=== PATIENT | female | born 2005 | race Caucasian/White ===

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

== ENCOUNTER 2024-10-12 10:40 | Emergency (ER) | payer BC, SELFPAY ==
--- NOTE | ~2024-10-12 | XR_ITS ---
XR abdomen obstructive series Ordering provider: Jasen Green MD History: . Constipation and fullness . Comparison: None. FINDINGS: BOWEL: Fecal material is loaded in the colon. Nonobstructive bowel gas pattern. ORGANOMEGALY: None. SIGNIFICANT PATHOLOGIC CALCIFICATIONS: None. OTHER: No free air is seen under the diaphragm. IMPRESSION: NO ACUTE ABDOMINAL FINDINGS. Constipation. Reviewed, dictated and finalized at location A.
[2024-10-12 10:40] VITALS: BP 121/85; PULSE 83; RESP 20; TEMP 36.7; O2SAT 98
[2024-10-12 11:02] LABS: Bilirubin Urine Negative (Negative); Blood Urine Negative (Negative); Glucose Urine UA Negative (Negative); Ketones Urine Negative (Negative); Leukocyte Esterase Ur Negative LEU/UL (Negative); Nitrate Urine Negative (Negative); Protein Urine Negative (Negative); Urobilinogen Urine 0.2 mg/dL (0.2-1.0); pH Urine 7.5 (5.0-8.0)
[2024-10-12 11:15] LABS: Add Urine Microscopic? YES; Amorphous Sediment Urine Heavy; Appearance Urine Cloudy (Clear); Bacteria Urine 2+ /hpf; Color Urine Yellow (Yellow); RBC Urine 0-2 /hpf (0-2); Squamous Epithelial Cell Urine Few /hpf (Few); WBC Urine 0-3 /hpf (0-3)
[2024-10-12 11:16] LABS: Pregnancy On Board Control Positive; Urine Pregnancy Test Negative
--- OUTSIDE RECORDS SUMMARY | 2024-10-12 11:27 | XMS_ITS | Clinical Summary ---
Author Organization [facility] Address [address] [place] [address] Care Team Providers Care Press Operator [employer] Name Role Phone No, Physician Primary Care Provider [phone] Allergies No known active allergies Medications , 1 mg-20 mcg (21)/75 mg (7) per tablet Take 1 tablet by mouth daily 11/15/2022 Active Active Problems Problem Noted Date Diagnosed Date Fracture of carpal bone 02/11/2015 Encounters Date Type Department Care Team Description 10/11/2024 Results Follow-Up [facility] at [address] [phone] Margaret Aggarwal NP Urine culture Urine, clean voided 10/09/2024 10:02 AM CDT - 10/09/2024 11:59 PM CDT Hospital Encounter [address] [address] Left lower quadrant abdominal pain Discharge Disposition: Discharge to home or self care 10/09/2024 9:15 AM CDT Office Visit [facility] at [address] [phone] Connor Mckeon NP Abdominal pain (Primary Dx); Left lower quadrant abdominal pain; Irregular bowel habits from Last 3 Months Immunizations Immunization Administration Dates Next Due DTaP, Unspecified 12/07/2008,08/14/2005,03/23/20 05,01/22/2005 HPV9 12/04/2015 Hep A, Pediatric 12/03/2009 Hep A, Unspecified 12/07/2008 Hep B, Unspecified 08/14/2005,03/23/2005, 005 HiB 08/14/2005,03/23/2005,01/22/2005 MMR 12/07/2008,11/27/2005 Meningococcal MCV4P (Menactra) 12/04/2015 Polio, Unspecified 12/07/2008,08/14/2005, 005,01/22/2005 Tdap 12/04/2015 Varicella 12/07/2008,11/27/2005 Social History Tobacco Use Types Packs/Day Years Used Date Smoking Tobacco: Never Smokeless Tobacco: Never Tobacco Cessation:Counseling Given: Not Answered Personal Safety Answer Date Recorded Have you ever been in or are you currently in a harmful physical or emotional relationship or is someone making you feel afraid or unsafe? 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 Gender Identity Not on file Sexual Orientation Not on file Obstetrics History Growth Chart Information Age Height Weight [id number] th Percentile BMI Percentile Head Circum Head Circum Percentile Date 18 years 64.9 kg (143 lb) 2024 17 years 170.2 cm (5' 7) 77.1 kg (170 lb) 87.08%* 2023 17 years 167.6 cm (5' 6) 77.1 kg (170 lb) 90.03%* 2022 17 years 168.9 cm (5' 6.5) 76 kg (167 lb 8 oz) 88.31%* 2022 16 years 170.2 cm (5' 7) 73.5 kg (162 lb) 84.64%* 2022 16 years 167.6 cm (5' 6) 68 kg (150 lb) 78.84%* 2022 16 years 166.4 cm (5' 5.5) 68.5 kg (151 lb) 82.62%* 2021 15 years 168.9 cm (5' 6.5) 67.1 kg (148 lb) 77.40%* 2021 14 years 167.6 cm (5' 6) 59.4 kg (131 lb) 60.68%* 2020 13 years 166.4 cm (5' 5.5) 70.3 kg (155 lb) 90.70%* 2019 12 years 62.5 kg (137 lb 12.6 oz) 2017 * [facility] (Girls, 2-20 Years) Last Filed Vital Signs Vital Sign Reading Time Taken Comments Blood Pressure 108/66 10/09/2024 8:53 AM CDT Pulse 73 10/09/2024 8:53 AM CDT Temperature 36.6 C (97.9 F) 10/09/2024 8:53 AM CDT Respiratory Rate 20 10/09/2024 8:53 AM CDT Oxygen Saturation 99% 10/09/2024 8:53 AM CDT Inhaled Oxygen Concentration - - Weight 64.9 kg (143 lb) 10/09/2024 8:53 AM CDT Height 170.2 cm (5' 7) 10/14/2023 10:08 AM CDT Body Mass Index 22.4 10/14/2023 10:08 AM CDT Plan of Treatment Health Maintenance Due Date Last Done Comments Depression Screening 2004 Hepatitis C Screening 2004 HPV Vaccines (2 - 2-dose series) 06/05/2016 12/04/2015 Meningococcal B Vaccine (1 of 2 - Standard) 2020 Regular Well Visit/Exam 18-64 2022 Influenza Vaccine (Season Ended) 2024 DTaP/Tdap/Td Vaccine (6 - Td or Tdap) 12/03/2025 12/04/2015, 12/07/2008, 08/14/2005, Additional history exists Hepatitis B Screening Completed 08/14/2005 , 03/23/2005, 01/22/2005 Varicella Vaccines Completed 12/07/2008, 11/27/2005 Meningococcal Vaccine Completed 01/29/2022, 016 Pneumococcal vaccine <65 Aged Out No longer eligible based on patient's age to complete this topic Procedures Procedure Name Priority Date/Time Associated Diagnosis Comments URINE CULTURE Routine 10/09/2024 10:02 AM CDT Left lower quadrant abdominal pain POCT URINALYSIS DIPSTICK Routine 10/09/2024 9:11 AM CDT Left lower quadrant abdominal pain from Last 3 Months Results * Urine culture Urine, clean voided (10/09/2024 10:02 AM CDT) Report Final Report: No growth Comment:Testing performed by : [facility], [address] [place]., [address] Urine, clean voided 10/09/2024 10:02 AM CDT 10/09/2024 11:51 PM CDT Narrative JESSE Simmons 10/11/2024 7:57 AM CDT Testing performed by [facility] Microbiology Laboratory ([phone]) Connor Mckeon NP LAB MICROBIOLOGY - [facility] Final Result [facility] [address] Department [place] [address] * POCT urinalysis dipstick (10/09/2024 9:11 AM CDT) Color, Urine, POC Yellow Clarity, ur, POC Clear Clear Glucose, ur, POC Negative Negative Bilirubin, ur, POC Negative Negative Ketones, ur, POC Negative Negative Specific [place], POC 1.020 1.003 - 1.030 Blood, ur, POC Negative Negative pH, ur, POC 7.0 5.0 - 8.0 Protein, ur, POC Negative Negative Urobilinogen, urine, POC 0.2 0.2 - 1.0 mg/dL Nitrite, ur, POC Negative Negative Leukocytes, ur, POC Negative Negative Lot Number [id number] Urine 10/09/2024 9:11 AM CDT Connor Mckeon NP POINT OF CARE TEST ORDERABLES F inal Result from Last 3 Months Insurance ANTHEM ACCESS ANTHEM ACCESS CHOICE ANTHEM ACCESS ANTHEM ACCESS Care Teams Press Operator [employer] Relationship Specialty Start Date End Date No, Physician PCP - General 10/14/23
--- OUTSIDE RECORDS SUMMARY | 2024-10-12 11:27 | XMS_ITS | Patient Health Record ---
Author Organization [facility] Address [address] [place], [place] [id number] Care Team Providers Care Viscosity Worker Name Role Phone Answer, Declined Unavailable Unavailable ISAAC PORTER Unavailable [phone] Allergies Allergen (clinical drug ingredient) Drug/Non Drug Allergy documented on EMR Reaction Allergy Type Onset Date Status No Known Drug Allergy Unknown Drug Allergy Active Reason For Referral No Information Medications Medication SIG (Take, Route, Frequency, Duration) Notes Start Date End Date Status methylPREDNISolone 4 MG as directed Orally one pack 024 Active Vital Signs Weight-kg 77.11 kg 11/08/2023 Weight 170 lbs 11/08/2023 Encounters Encounter Location Date Provider Diagnosis [facility] [place] [address] [place], [place] [id number] 11/08/2023 ISAAC PORTER Other enthesopathy o f right foot and ankle M77.51 ; Hallux valgus (acquired), right foot M20.11 and Pain in right foot M79.671 Assessments Encounter Date Diagnosis (ICD Code) Assessment Notes Treatment Notes Treatment Clinical Notes Section Notes 11/08/2023 Hallux valgus (acquired), right foot (ICD-10 - M20.11) Bunion: Discussed various treatments with the patient regarding hallux abducto valgus deformity. Discussed conservative care consisting of padding, wider shoes, anti-inflammatorie s, and orthotics. Discussed surgical treatment options and answered all questions about the intra-operative and post-operative treatment course. Shoe Recommendation: Advised patient on appropriate shoe gear for protection, healing and good foot health. Padding: Application of accomodative padding to offload pressure from area. PowerStep Inserts: The patient was dispensed and fitted with over the counter arch supports. The patient was educated on their use and effect. All questions were answered. 11/08/2023 Other enthesopathy of right foot and ankle (ICD-10 - M77.51) Capsulitis / Bursitis: I discussed anti-inflammatory treatment options and various means of immobilization with the patient. I educated the patient on icing and stretching, supportive shoegear, and the use of orthotic devices and bracing. 11/08/2023 Pain in right foot (ICD-10 - M79.671) Plan Of Treatment No Information Insurance Providers Payer Name Payer Address Payer Phone Subscriber Number Group Number Insured Name Patient Relationship to Insured Coverage Start Date Coverage End Date [facility] ([facility]) ATTN CLAIMS [address] [place] [address] [id number] Pao Sotomayor Self - patient is the insured
--- OUTSIDE RECORDS SUMMARY | 2024-10-12 11:27 | XMS_ITS | Referral Summary ---
Author Organization [facility] Address [address] [place] [address] Care Team Providers Care Drill Press Tender Name Role Phone No, Physician Primary Care Provider [phone] Encounters Date Type Department Care Team Description 10/11/2024 Results Follow-Up [facility] at [address] [phone] Margaret Aggarwal NP Urine culture Urine, clean voided 10/09/2024 10:02 AM CDT - 10/09/2024 11:59 PM CDT Hospital Encounter [address] [phone] Left lower quadrant abdominal pain Discharge Disposition: Discharge to home or self care 10/09/2024 9:15 AM CDT Office Visit [facility] at [address] [phone] Connor Mckeon NP Abdominal pain (Primary Dx); Left lower quadrant abdominal pain; Irregular bowel habits from Last 3 Months Allergies No known active allergies Medications 05/15, , 1 mg-20 mcg (21)/75 mg (7) per tablet Take 1 tablet by mouth daily 11/15/2022 Active Active Problems Problem Noted Date Diagnosed Date Fracture of carpal bone 02/11/2015 Immunizations Immunization Administration Dates Next Due DTaP, [...] on file 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 Gender Identity Not on file Sexual Orientation Not on file Last Filed Vital Signs Vital Sign Reading [...] 10/14/2023 10:08 AM CDT Plan of Treatment Not on file Procedures Procedure Name Priority Date/Time Associated Diagnosis Comments URINE CULTURE Routine 10/09/2024 10:02 AM CDT Left lower quadrant abdominal pain POCT URINALYSIS DIPSTICK Routine 10/09/2024 9:11 AM CDT Left lower quadrant abdominal pain from Last 3 Months Results * Urine culture Urine, clean voided (10/09/2024 10:02 AM CDT) Report Final Report: No growth Comment:Testing performed by : [facility], [address] [place]., [address] Urine, clean voided 10/09/2024 10:02 AM CDT 10/09/2024 11:51 PM CDT Narrative JESSE Simmons 10/11/2024 7:57 AM CDT Testing performed by [facility] Microbiology Laboratory ([phone]) Connor Mckeon NP LAB MICROBIOLOGY - [facility] Final Result J[facility] [address] Department [place] [address] * POCT urinalysis dipstick (10/09/2024 9:11 AM CDT) Color, Urine, POC Yellow Clarity, ur, POC Clear Clear Glucose, ur, POC Negative Negative Bilirubin, ur, POC Negative Negative Ketones, ur, POC Negative Negative Specific [place], POC 1.020 1.003 - 1.030 Blood, ur, POC Negative Negative pH, ur, POC 7.0 5.0 - 8.0 Protein, ur, POC Negative Negative Urobilinogen, urine, POC 0.2 0.2 - 1.0 mg/dL Nitrite, ur, POC Negative Negative Leukocytes, ur, POC Negative Negative Lot Number [id number] Urine 10/09/2024 9:11 AM CDT Connor Mckeon NP POINT OF CARE TEST ORDERABLES F inal Result from Last 3 Months Insurance ANTH ACCESS [employer] ACCESS CHOICE ANTHEM ACCESS ANTHEM ACCESS Care Teams Drill Press Tender Relationship Specialty Start Date End Date No, Physician PCP - General 10/14/23
--- OUTSIDE RECORDS SUMMARY | 2024-10-12 11:27 | XMS_ITS ---
Author Organization [facility] Address [address] [place], [place] [address] Care Team Providers Care Tube Operator Name Role Phone Answer, Declined Unavailable Unavailable ISAAC SALAS Unavailable [phone] REASON FOR VISIT *Powerstep follow-up Encounters Encounter Location Date Provider Diagnosis [facility] [place] [address] [place], [place] [phone] 11/22/2023 ISAAC SALAS Plan Of Treatment No Information Progress Notes * Luis A SOTOMAYOROB: 5 (18 yo F)Acc No.[id number]:11/22/2023 Patient: Pao GIBBONS Provider: Neyda Salas DPM :2005 A ge:18 Y S ex:Female Date:11/22/2023 Address:[address] [place], [place] [id number] Subjective: * Chief Complaints: * 1 . *Powerstep follow-up. * Medical History: Objective: * Vitals: Assessment: Plan: * Treatment: * Billing Information: * Visit Code: * Procedure Codes: * Electronic signature of ISAAC SALAS DPM on 10/12/2024 at 11:27 AM CDT Sign off status: Pending * Provider: Neyda Salas DPM Date: 11/22/2023 Generated for Chari kody/Famarianela/eTransmitting on: 0 10/12/2024 11:27 AM CDT
--- OUTSIDE RECORDS SUMMARY | 2024-10-12 11:27 | XMS_ITS | Data Portability ---
Author Organization [facility] Cheryl [facility] Address [address] [facility] [place] [address] Care Team Providers Care Color Dipper Name Role Phone LILIANA GTZ Primary Care Provider [phone] Assessment No assessment recorded. Plan of Treatment Reminders Order Date Submit Date Provider Last Modified By Organization Details Last Modified Time Details Appointments ANY 30 2024 02:30P M Sabrina Lawrence-Sm ith, CERTIFIED NURSES AIDE-Bc Not available Not available Not available Lab chlamydia trachomat is + neisseria gonorrhoe ae + trichomon as vaginalis DNA panel, LUCIEN+probe , unspecifi ed specimen 2022 023 [facility], [address], [facility] [address], [place], [address], 10/23/2022 08:31:40 test, urine 2022 023 [email or web address] In-Office Order, Internal Use Only DO Not Attach Compendium DO Not Attach Compendium, Do Not Delete/merge, [id number] 10/21/2022 10:53:38 Referral None recorded. Procedures None recorded. Surgeries None recorded. Imaging None recorded. Medication Orders 05/15 (28) 1 mg-20 mcg (21)/75 mg (7) tablet 2022 023 [id number], [address] [place], [address], 10/21/2022 10:32:04 Patient TargetsNo targets recorded. Patient Instructions Encounter Date Encounter Id Patient Instructions Last Modified By Organization Details Last Modified Time 10/21/2022 [id number] Discussed hpv vaccine. pt said she thinks she completed series and will let us know if she still needs it. [email or web address] Not available 10/21/2022 10:32:41 Reason for Referral None Reported. Results Created Date Observation Date Name Description Value Unit Range Abnormal Flag Note LastModifiedBy Organization Detail LastModifiedTime 10/22/1910/23/2022 CT, NG, TRICH VAG BY LUCIEN chlamydia by LUCIEN Negati ve negati ve Not Available [facility] ([facility]) [address] [place], [address], 10/23/2022 07:13:41 10/22/1910/23/2022 CT, NG, TRICH VAG BY LUCIEN gonococcus by LUCIEN Negati ve negati ve Not Available [facility] ([facility]) [address] [place], [address], 10/23/2022 07:13:41 10/22/1910/23/2022 CT, NG, TRICH VAG BY LUCIEN trich vag by LUCIEN Negati ve negati ve Not Available [facility] ([facility]) [address] [place], [address], 10/23/2022 07:13:41 10/22/1910/21/2022 pregn ryan test, urine HCG negati ve Not Available In-Office Order Internal Use Only DO Not Attach Compendium DO Not Attach Compendium, Do Not Delete/merge, [id number] 10/21/2022 09:34:51 Result Notes None recorded. Problems No Known Problems Medical Equipment None Reported. Allergies No known drug allergies Medications Name Sig Start Date Stop Date Status Note LastModified by Organization Details LastModified Time Xofluza 40 mg tablet 40 MG ORALLY ONCE A SINGLE DOSE 10/21 completed Not Available Not Available Not Available Aurovela Fe 1-20 (28) 1 mg-20 mcg (21)/75 mg (7) tablet TAKE 1 TABLET BY MOUTH EVERY DAY CALL THE OFFICE FOR AN OVERDUE APPT PLEASE 025 active Not Available Not Available Not Avai lable Vitals Date Recorded Body height Body mass index (BMI) Body mass index (BMI) [Percentile] Per age and sex Body weight Systolic blood pressure Diastolic blood pressure Provider Name and Address Organization Details Last Updated DateTime 3 167.64 cm 26.5 kg/m2 88 % 79167.1 5 g 111 mm[Hg] 76 mm[Hg] CYNTHIA Lagunas [place] - [facility] 3 09:03:36 Date Recorded Body weight Body height Body mass index (BMI) Oxygen saturation Oxygen saturation in Arterial blood by Pulse oximetry Heart rate Systolic blood pressure Diastolic blood pressure Provider Name and Address Organization Details Last Updated DateTime 8 27927.9 3 g 164.47 cm 23.5 kg/m2 98 % 98 % 98 /min 112 mm[Hg] 78 mm[Hg] Lamar Khan MA [facility] 8 18:32:12 Social History Question Answer Notes LastModified by [employer] Details LastModified Time Tobacco Smoking Status Never Smoker Arianna JohnsonCYNTHIA martinez null, [facility] 10/21/2022 09:06:21 What Is Your Level Of Caffeine Consumption? Occasional Information not available 10/21/2022 What Was The Date Of Your Most Recent Tobacco Screening? 10/21/2022 Information not available 10/21/2022 Has Tobacco Cessation Counseling Been Provided? Yes Information not available 10/21/2022 On What Date Was Tobacco Cessation Counseling Provided? 10/21/2022 Information not available 10/21/2022 Sex: Female Functional Status Question Answer Note LastModified by [employer] Details LastModified Time Do you use any illicit or recreational drugs? No Information not available 10/21/2022 What is your level of alcohol consumption? None Information not available 10/21/2022 Mental Status None recorded. Family History Relationship Description Onset Age of this Age Resolved Age Notes LastModified by Organization Details LastModified Time Father No current problems or disability [email or web address] Not available 09/25 09:05:51 Mother No current problems or disability [email or web address] Not available 09/25 09:05:51 Medical History Condition Response Other N High Blood Pressure N Breast Cancer N Kidney or Bladder Problems N Thyroid Problems N Lung Disease N Blood Clots N Depression N GI Problems N Acne N Breast Problem N Eating Disorder N Anemia N Anesthesia Complications N Headaches/Migraines N Anxiety Disorder N Diabetes N Ovarian Cancer N Muscle, Joint, or Bone Problems N Blood Transfusions N Seizures/Epilepsy N Polyps N Infertility N Acid Reflux (GERD) N Cancer N Abuse/Domestic Violence N Asthma N Endometriosis N High Cholesterol N Hepatitis N Liver Disease N Heart Disease N Pre-Eclampsia N Osteoporosis N Gynecological History Statement/Question Response Flow Moderate Frequency of Cycle (Q days) 28 Sexually Active? Y Menses Monthly Y STIs/STDs N Duration of Flow (days) 5 Sexual Problems? N Age at Menarche 11 LMP Approximate Desired Control Method BCPs Obstetrics History GPAL:G 0 P 0 0 0 0 Past Encounters Encounter ID Performer Location Encounter Start Date Encounter Closed Date Diagnosis/Indication Diagnosis SNOMED-CT Code Diagnosis ICD10 Code Diagnosis Note [id number] Luis F Valerio MD [facility] [address] [place] [address] 12/09/2017 18:16:45 12/09/2017 18:57:05 Well child 086560366 Z00.321 [id number] MD Guille Villa 14 OB 4 [facility] [address] [place] [address] 10/21/2022 08:47:15 10/24/2022 14:27:26 High risk sexual behavior 550353729 Z72.51 urine collected and sent to lab. Counseled on safe sex, condom use and STD precaution s discussed screening completed per patient's request [facility] ion care management 871330107 Z30.9 Discussed all options. Pt decided on NABEEL. Risks of hormonal control reviewed, patient was informed of risk including but not limited to thrombosis , embolism, pulmonary embolism, stroke, disability , sexual dysfunctio n & .Risk s of hormonal control reviewed,m enstrual bleeding or no bleeding, weight changes, breast tenderness and mood changes. Patient understand s these risk are increased with smoking. Pt understand s & accepts risks. Instructio ns/warning signs given. Safe sex counseling done. Follow up in 2-3 month and call office if issues occur. Health Concerns Section Related Observation LastModified by Organization Detai ls LastModified Time None Recorded Concern Status LastModified by Organization Details LastModified Time None Recorded Advance Directives Directive None Recorded Payers Insurance Date Sequence Insurance Name Policy Number Policy Galindo Covered Member ID Galindo Member ID Guarantor Name 2022 1 [place] [id number] 2 Artemio Sotomayor Jr [id number] Blanca Meyernoy 10/11/2024 1 [place] [id number] 2 Artemio Juju Sotomayor Jr [id number] Blanca Sebastian Notes Date Note Type Note Provider Name and Address Organization Details Recorded Time 12/09/2017 text/html sports phys CAITLYN [place], [place] - [place] 12/10/2017 09:47:39 10/21/2022 text/html Pt is here to discuss control options. Pt denies any complaints. Pt denies chance of at this time. 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 JOYCE Franco Attn: Accounting[address] [place], [address], [facility] 10/21/2022 10:34:15 OBGyn Episode No OBEpisode recorded.
--- OUTSIDE RECORDS SUMMARY | 2024-10-12 11:27 | XMS_ITS | Encounter Summary ---
Author Organization [facility] Address [address] [place] [address] Care Team Providers Care Shot Peen Operator Name Role Phone No, Physician Primary Care Provider [phone] Encounter Details Date Type Department Care Team (Late st Contact Info) Description 10/11/2024 Results Follow-Up [facility] at [address] [address] Margaret Aggarwal NP [address] [place] [address] [address] [place] [address] Urine culture Urine, clean voided Social History Tobacco Use Types Packs/Day Years Used Date Smoking Tobacco: Never Smokeless Tobacco: Never Personal Safety Answer Date Recorded Have you ever been in or are you currently in a harmful physical or emotional relationship or is someone making you feel afraid or unsafe? 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 No other questions or concerns at this time. * Result Encounter Note - Margaret Aggarwal NP - 10/11/2024 7:58 AM CDT Please alert patient that urine culture was negative. She can stop taking antibiotics if any were prescribed. If s/s persist, she should follow up with PCP. documented in this encounter Plan of Treatment Not on file documented as of this encounter Visit Diagnoses Not on filedocumented in this encounter Care Teams Shot Peen Operator Relationship Specialty Start Date End Date No, Physician PCP - General 10/14/23 documented as of this encounter
--- OUTSIDE RECORDS SUMMARY | 2024-10-12 11:27 | XMS_ITS | Clinical Summary ---
Author Organization [facility] Address [address] [place] [address] Care Team Providers Care Cloth Tearer Name Role Phone Lois Callahan MD Primary Care Provider [phone] Source Comments [facility],non-owned Affiliates and Associated Physician Practices is amultiple site organization consisting of ambulatory clinics and hospital sitesin [place], [place], [place] and [place]. This disclosure is being madepursuant to the Care Everywhere program and may not contain all information available regarding this patient. Last updated 18.[facility] Allergies No known active allergies Medications * Be aware that medications may not be up to date on this document. Alwaysverify current medications with the patient. No known medications Family History Medical History Relation Name Comments None Known Father None Known Mother Relation Name Status Comments Father Mother Social History Tobacco Use Types Packs/Day Years Used Date Smoking Tobacco: Never Smokeless Tobacco: Never Alcohol Use Standard Drinks/Week Comments Never 0 (1 standard drink = 0.6 oz pur e alcohol) AUDIT-C Answer Date Recorded Q1: How often do you have a drink containing alc ohol? Never 12/30/2019 Average Number of Drinks Not on file 020 Frequency of Binge Drinking Not on file 08/2019 Comments Unknown Sex and Gender Information Value Date Recorded Sex Assigned at Not on file Legal Sex Female 3:10 PM CDT Gender Identity Not on file Sexual Orientation Not on file Last Filed Vital Signs Vital Sign Reading Time Taken Comments Blood Pressure 120/78 12/30/2019 10:53 AM CDT Pulse 79 12/30/2019 10:50 AM CDT Temperature 36.7 C (98.1 F) 12/30/2019 10:50 AM CDT Respiratory Rate 16 12/30/2019 10:5 0 AM CDT Oxygen Saturation 97% 12/30/2019 10: 50 AM CDT Inhaled Oxygen Concentration - - Weight 62.1 kg (136 lb 12.8 oz) 020 10:50 AM CDT Height 166.4 cm (5' 5.5) 12/30/2019 10 :50 AM CDT Body Mass Index 22.42 12/30/2019 10:50 AM CDT Body Mass Index Percentile 75.35% 12/29 10:50 AM CDT Growth Chart: [facility] (Girls, 2- 20 Years) Plan of Treatment Health Maintenance Due Date Last Done Comments HIV SCREENING 11/20/2019 HPV VACCINE (1 - 3-dose series) 11/20/2019 CHLAMYDIA/GONORRHEA SCREENING 2020 MENINGOCOCCAL (Group B) VACC INE SHARED DECISION-MAKING (1 of 2 - Standard) 2020 HEPATITIS C SCREENING 11/15/2022 DTAP/TDAP/TD VACCINES (1 - Tdap) 11/20/2023 HEPATITIS B VACCINE (1 of 3 - 19+ 3-dose series) 11/20/2023 COVID-19 VACCINE (1 - 2023-2 5 season) 2023 DEPRESSION SCREENING 04/26/2024 12/30/2019 INFLUENZA VACCINE (Season Ended) 2024 ZOSTER VACCINE (1 of 2) 2054 HIB VACCINE Aged Out No longer eligi ble based on patient's age to complete this topic MENINGOCOCCAL GROUPS A/C/Y/W VACCINE Aged Out No longer eligible b ased on patient's age to complete this topic PNEUMOCOCCAL VACCINE Aged Out No long er eligible based on patient's age to complete this topic Care Teams Cloth Tearer Relationship Specialty Start Date End Date Lois Callahan MD [address] [place] [address] PCP - General Pediatrics 12/30/19
[2024-10-12 11:28] LABS: Alanine Aminotransferase 22 U/L (6-35); Alkaline Phosphatase 38 U/L (45-116); Anion Gap 5 mmol/L (4-12); Aspartate Amino Transferase 32 U/L (14-36); Bilirubin,Total 0.3 mg/dL (0.2-1.3); Blood Urea Nitrogen 26 mg/dL (8-21); Calcium 8.8 mg/dL (8.9-10.7); Carbon Dioxide 28 mmol/L (22-30); Chloride 104 mmol/L (98-107); Estimated CRCL calculation 74 ml/min; Estimated Glomerular Filt Rate > 60; Glucose 72 mg/dL (65-110); Osmolality Calculated 287 mOsm/kg (285-295); Potassium 4.1 mmol/L (3.4-5.0); Sodium 137 mmol/L (134-143); Total Protein 6.7 g/dL (6.3-8.6)
--- NOTE | 2024-10-12 11:30 | ED_ITS ---
HPI - Abdominal Pain General Chief Complaint: Abdominal Pain Stated Complaint: lower abd pain Time Seen by Provider: 10/12/24 10:44 Source: patient Mode of arrival: ambulatory Limitations: no limitations History of Present Illness HPI narrative: This is a 18-year-old female with no significant past medical history presents with a 4 day history of constipation, patient has abdominal fullness with no abdominal pain no dysuria or hematuria no fever chills no chest pain or shortness of breath. Patient was seen in the urgent care and advised to take MiraLax but patient states that she has been having persistent episodes of constipation with difficulty and straining while trying to pass stool. Pertinent past history: constipation Onset (ago): day(s) Pain Consistency: intermittent Severity: mild Related Data Allergies Allergy/AdvReac Type Severity Reaction Status Date / Time No Known Allergies Allergy Verified 10/12/24 10:48 Review of Systems 2 Review of Systems: All systems reviewed & are unremarkable except as noted in HPI and below PMFSH Past Medical History Medical History Patient denies medical problems Exam 2 Const: General: healthy appearing, no acute distress and alert Nutritional Appearance: well nourished Orientation/consciousness: patient oriented x3 Limitations: no limitations HENMT: Head: normal to inspection Neck: Neck: normal visual inspection, no lymphadenopathy and no meningeal signs Chest: Chest palpation & inspection: normal inspection of the chest Resp: Effort & Inspection: normal respiratory effort Auscultation: clear to auscultation bilaterally Cardio: Rate: regular rate Rhythm: regular rhythm GI: GI Palp: Yes Soft to palpation Auscultation: normal bowel sounds : General: Yes bladder normal to palpation Urinary Catheter: Urinary Catheter: patent and draining Back/Spine/Pelvis: Back: no CVA tenderness Skin: General skin exam: normal color Rashes: no rashes Wounds: no wounds Neuro: General: patient oriented x3, moves all extremities and no meningeal signs Course Course Emergency Course: x-ray performed and reviewed, Patient had blood work performed reviewed with patient. Vital Signs Vital signs: Vital Signs Temperature 36.7 C 10/12/24 10:40 Pulse Rate 83 10/12/24 10:40 Respiratory Rate 20 10/12/24 10:40 Blood Pressure 121/85 10/12/24 10:40 Pulse Oximetry 98 10/12/24 10:40 Oxygen Delivery Room Air 10/12/24 10:40 Temperature 36.7 C 10/12/24 10:40 Pulse Rate 83 10/12/24 10:40 Respiratory Rate 20 10/12/24 10:40 Blood Pressure 121/85 10/12/24 10:40 Pulse Oximetry 98 10/12/24 10:40 Oxygen Delivery Room Air 10/12/24 10:40 MDM - Abdominal Pain Lab Data 10/12/24 11:02 Labs: Lab Results 10/12/24 10/12/24 10/12/24 Range/Units 10:51 10:54 11:02 Sodium 137 (134-143) mmol/L Potassium 4.1 (3.4-5.0) mmol/L Chloride 104 (98-107) mmol/L Carbon Dioxide 28 (22-30) mmol/L Anion Gap 5 (4-12) mmol/L BUN 26 H (8-21) mg/dL Creatinine 1.06 H (0.7-1.0) mg/dL Estim Creat Clear Calc 74 ml/min Estimated GFR > 60 (59 - ) Glucose 72 (65-110) mg/dL Calculated Osmolality 287 (285-295) mOsm/kg Calcium 8.8 L (8.9-10.7) mg/dL Total Bilirubin 0.3 (0.2-1.3) mg/dL AST 32 (14-36) U/L ALT 22 (6-35) U/L Alkaline Phosphatase 38 L (45-116) U/L Total Protein 6.7 (6.3-8.6) g/dL Albumin 4.0 (3.7-5.6) g/dL Urine Color Yellow (Yellow) Urine Appearance Cloudy A (Clear) Urine pH 7.5 (5.0-8.0) Ur Specific [place] 1.010 (1.010-1.020) Urine Protein Negative (Negative) Urine Glucose (UA) Negative (Negative) Urine Ketones Negative (Negative) Ur Blood (Man) Negative (Negative) Urine Nitrate Negative (Negative) Urine Bilirubin Negative (Negative) Urine Urobilinogen 0.2 (0.2-1.0) mg/dL Leukocyte Esterase Rfl Negative (Negative) STEVE/UL Urine RBC 0-2 (0-2) /hpf Urine WBC 0-3 (0-3) /hpf Ur Squamous Epith Cells Few (Few) /hpf Amorphous Sediment Heavy H (None) Urine Bacteria 2+ H (None) /hpf Urine Test Negative Critical Care Time Critical Care Time Critical Care Time: No Discharge Plan Discharge Clinical Impression: Constipation Qualifiers: Constipation type: unspecified constipation type Qualified Code(s): K59.00 - Constipation, unspecified Patient Disposition: Home Condition: Stable Instructions: Antibiotic Form, Constipation (ED) Patient Language: [place] Prescriptions: No Action Xofluza 40 mg tablet 40 mg PO ONCE Qty: 1 0RF Rx Instructions: as a single dose Follow-up/Referrals: UNKNOWN,DOCTOR [Primary Care Provider] -
[2024-10-12 11:55] VITALS: BP 118/73; PULSE 62; RESP 14; TEMP 36.6; O2SAT 100
--- OUTSIDE RECORDS SUMMARY | 2024-10-12 11:56 | XMS_ITS | Clinical Summary ---
Author Organization [facility] Address [address] [facility] [place] [address] Care Team Providers Care Plumber Pipe Fitting Name Role Phone Lois Callahan MD Primary Care Provider [phone] Source Comments [facility],non-owned Affiliates and Associated Physician Practices is amultiple site organization consisting of ambulatory clinics and hospital sitesin [place], [place], [place] and [place]. This disclosure is being madepursuant to the Care Everywhere program and may not contain all information available regarding this patient. Last updated 18.[facility] Allergies No known active allergies Medications * [...] 75.35% 12/29 10:50 AM CDT Growth Chart: [facility] (Girls, 2- 20 Years) Plan of Treatment [...] age to complete this topic Care Teams Plumber Pipe Fitting Relationship Specialty Start Date End Date Lois Callahan MD [address] [place] [address] PCP - General Pediatrics 12/30/19
--- OUTSIDE RECORDS SUMMARY | 2024-10-12 11:56 | XMS_ITS | Referral Summary ---
Author Organization [facility] Address [address] [place] [address] Care Team Providers Care Respiratory Clinician Name Role Phone No, Physician Primary Care Provider [phone] Encounters Date Type Department Care Team Description 10/11/2024 Results Follow-Up [facility] Convenient Care at [address] [address] Margaret Aggarwal NP Urine culture Urine, clean voided 10/09/2024 10:02 AM CDT - 10/09/2024 11:59 PM CDT Hospital Encounter [address] [id number] Left lower quadrant abdominal pain Discharge Disposition: Discharge to home or self care 10/09/2024 9:15 AM CDT Office Visit [facility] at [address] [address] Connor Mckeon NP Abdominal pain [...] on file 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 Gender Identity Not on file Sexual Orientation [...] Report: No growth Comment:Testing performed by : [facility], [address] [place]., [address] Urine, clean voided 10/09/2024 10:02 AM CDT 10/09/2024 11:51 PM CDT Narrative JESSE Simmons 10/11/2024 7:57 AM CDT Testing performed by [facility] Microbiology Laboratory ([phone]) Connor Mckeon NP LAB MICROBIOLOGY - [facility] Final Result JESSE [address] Department [place] [address] * POCT urinalysis dipstick (10/09/2024 9:11 AM CDT) Color, Urine, POC Yellow Clarity, ur, POC Clear Clear Glucose, ur, POC Negative Negative Bilirubin, ur, POC Negative Negative Ketones, ur, POC Negative Negative Specific [place], POC 1.020 1.003 - 1.030 Blood, ur, POC Negative Negative pH, ur, POC 7.0 5.0 - 8.0 Protein, ur, POC Negative Negative Urobilinogen, urine, POC 0.2 0.2 - 1.0 mg/dL Nitrite, ur, POC Negative Negative Leukocytes, ur, POC Negative Negative Lot Number [id number] Urine 10/09/2024 9:11 AM CDT Connor Mckeon NP POINT OF CARE TEST ORDERABLES F inal Result from Last 3 Months Insurance ANTH ACCESS [place]TH[place] ACCESS CHOICE ANTHEM ACCESS ANTHEM ACCESS Care Teams Respiratory Clinician Relationship Specialty Start Date End Date No, Physician PCP - General 10/14/23
--- OUTSIDE RECORDS SUMMARY | 2024-10-12 11:56 | XMS_ITS | Clinical Summary ---
Author Organization [facility] Address [address] [place] [address] Care Team Providers Care Certified Flight Instructor Name Role Phone No, Physician Primary Care Provider [phone] Allergies No known active allergies Medications , 1 mg-20 mcg (21)/75 mg (7) per tablet Take 1 tablet by mouth daily 11/15/2022 Active Active Problems Problem Noted Date Diagnosed Date Fracture of carpal bone 02/11/2015 Encounters Date Type Department Care Team Description 10/11/2024 Results Follow-Up [facility] at [address] [address] Margaret Aggarwal NP Urine culture Urine, clean voided 10/09/2024 10:02 AM CDT - 10/09/2024 11:59 PM CDT Hospital Encounter [address] [id number] Left lower quadrant abdominal pain Discharge Disposition: Discharge to home or self care 10/09/2024 9:15 AM CDT Office Visit 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 Gender Identity Not on file Sexual Orientation Not on file Obstetrics History Growth Chart Information Age Height Weight [id number]-[id number] th Percentile BMI Percentile Head Circum Head [...] kg (137 lb 12.6 oz) 2017 * [facility] (Girls, 2-20 Years) Last Filed Vital Signs [...] Report: No growth Comment:Testing performed by : [facility], [address] [place]., [address] Urine, clean voided 10/09/2024 10:02 AM CDT 10/09/2024 11:51 PM CDT Narrative JESSE Simmons 10/11/2024 7:57 AM CDT Testing performed by [facility] Microbiology Laboratory ([phone]) Connor Mckeon NP LAB MICROBIOLOGY - [facility] Final Result [facility] [address] Department [place] [address] * POCT urinalysis dipstick (10/09/2024 9:11 AM CDT) Color, Urine, POC Yellow Clarity, ur, POC Clear Clear Glucose, ur, POC Negative Negative Bilirubin, ur, POC Negative Negative Ketones, ur, POC Negative Negative Specific [place], POC 1.020 1.003 - 1.030 Blood, ur, POC Negative Negative pH, ur, POC 7.0 5.0 - 8.0 Protein, ur, POC Negative Negative Urobilinogen, urine, POC 0.2 0.2 - 1.0 mg/dL Nitrite, ur, POC Negative Negative Leukocytes, ur, POC Negative Negative Lot Number [id number] Urine 10/09/2024 9:11 AM CDT Connor Mckeon NP POINT OF CARE TEST ORDERABLES F inal Result from Last 3 Months Insurance ANTHEM ACCESS ANTHEM ACCESS CHOICE ANTHEM ACCESS ANTHEM ACCESS Care Teams Certified Flight Instructor Relationship Specialty Start Date End Date No, Physician PCP - General 10/14/23
--- OUTSIDE RECORDS SUMMARY | 2024-10-12 11:56 | XMS_ITS | Encounter Summary ---
Author Organization [facility] Address [address] [place] [address] Care Team Providers Care Broadcast Checker Name Role Phone No, Physician Primary Care Provider [phone] Encounter Details Date Type Department Care Team (Late st Contact Info) Description 10/11/2024 Results Follow-Up [facility] at [address] [address] Margaret Aggarwal NP [address] [place] [address] [address] [place] [address] Urine culture Urine, clean voided [...] on file Legal Sex Female 2:36 AM [employer] Gender Identity Not on file Sexual Orientation [...] on filedocumented in this encounter Care Teams Broadcast Checker Relationship Specialty Start Date End Date No, Physician PCP - General 10/14/23 documented as of this encounter
== END 2024-10-12 11:55 | disposition home or self-care (01) ==
PROVIDERS: Emergency Provider Emergency Medicine
DX: K59.00 Constipation, unspecified (principal)
CPT/HCPCS: 36415; 74019; 80053; 81001; 81025; 99283